=== PATIENT | female | born 1950 | race Caucasian/White ===

== ENCOUNTER 2020-05-15 21:34 | Emergency (ER) | payer OTHER ==
[~2020-05-15] VITALS: Ht 160 cm; Wt 54.4 kg
[2020-05-15] MEDS ORDERED: LOSARTAN-HCTZ1 EAC3 PO (21:50)
[2020-05-15] MEDS ORDERED: HUMALOG100 UNIT/1 SUBQ (21:50)
[2020-05-15] MEDS ORDERED: PRAVACHOL 20 MG20 M1 PO (21:50)
[2020-05-15] MEDS ORDERED: ASA81BEC PO (21:51)
[2020-05-15 22:28] LABS: HEMATOCRIT 37.6 % (37.0-47.0); HEMOGLOBIN 12.8 gm/dL (12.0-15.0); MCH 31.8 pg (26.0-34.0); MCV 93.6 fL (80.0-100.0); MPV 7.3 fl. (7.2-11.1); RBC 4.02 mil/uL (4.20-5.00); RDW-CV 12.1 % (10.5-14.5); WBC 6.8 thou/uL (4.0-11.0)
[2020-05-15 22:32] LABS: CALCIUM 9.1 mg/dL (8.5-10.1); CREATININE 0.9 mg/dL (0.6-1.3); POTASSIUM 3.4 mmol/L (3.5-5.1)
[2020-05-15 22:37] LABS: TOTAL BILIRUBIN 0.5 mg/dL (<0.1-1.0); TOTAL PROTEIN 7.1 g/dL (6.4-8.2)
[2020-05-16 00:30] VITALS: BP 99/54
--- NOTE | 2020-05-16 12:39 | EKG ---
[place] [address] ELECTROCARDIOGRAM REPORT Name: JULIA WATTS Room: [facility]#: [id number] Admission: 05/15/20 Attend Phys: Discharge: 05/16/20 Date of : 46 Date of Service: 05/15/202155 Report #: [id number] THIS REPORT FOR: //name// [facility] ED Test Date: 2020-05-15 Test Time: 21:56:07 Pat Name: JULIA WATTS Department: Room: Gender: F Software Developer Manager: FABIÁN : 1950 Requested By: Evelyne Thomas Order Number: [id number] MD: Kishore Garcia Measurements Intervals [place] Rate: 64 P: 67 [place]: 168 QRS: 38 QRSD: 93 T: 37 QT: 435 QTc: 449 Interpretive Statements Sinus rhythm Probable left atrial enlargement No previous ECG available for comparison Electronically Signed On 05-16-2020 12:39:42 GRAVEL SCREENER by Kishore Garcia [email or web address] <ELECTRONICALLY SIGNED> By: Kishore Garcia MD, [facility] 05/16/20 1239 [id number] Kishore Garcia MD, FAC /EPI
== END 2020-05-16 00:30 | disposition home or self-care (01) ==
LOC: M.ERS 21:34
PROVIDERS: Personal Emergency Response Attendant
DX: S01.01XA Laceration without foreign body of scalp, initial encounter (principal); E11.649 Type 2 diabetes mellitus with hypoglycemia without coma; R55 Syncope and collapse; I10 Essential (primary) hypertension; E78.00 Pure hypercholesterolemia, unspecified; Z79.4 Long term (current) use of insulin; Z79.899 Other long term (current) drug therapy; Z79.82 Long term (current) use of aspirin; Z88.0 Allergy status to penicillin; W18.09XA Striking against other object with subsequent fall, initial encounter; Y93.89 Activity, other specified; Y92.89 Other specified places as the place of occurrence of the external cause; Y99.8 Other external cause status

== ENCOUNTER 2020-05-16 15:15 | Emergency (ER) | payer OTHER ==
[~2020-05-16] VITALS: Ht 160 cm; Wt 54.4 kg
[~2020-05-16 15:15] MED LIST: ASA81BEC PO; HUMALOG100 UNIT/1 SUBQ; LOSARTAN-HCTZ1 EAC3 PO; PRAVACHOL 20 MG20 M1 PO
[2020-05-16 15:42] LABS: ABSOLUTE EOSINOPHILS 0.1 thou/uL (0.0-0.7); ABSOLUTE LYMPHOCYTES 1.6 thou/uL (0.8-5.3); ABSOLUTE MONOCYTES 0.6 thou/uL (0.0-1.2); ABSOLUTE NEUTROPHILS 4.7 thou/uL (1.6-8.1); BASOPHILS 0.6 %; EOSINOPHILS 1.7 %; HEMATOCRIT 38.4 % (37.0-47.0); HEMOGLOBIN 13.3 gm/dL (12.0-15.0); LYMPHOCYTES 22.9 %; MCH 32.3 pg (26.0-34.0); MCHC 34.7 g/dL (28.0-37.0); MONOCYTES 7.9 %; MPV 6.9 fl. (7.2-11.1); NUCLEATED RBCS 0 /100WBC; PLATELET COUNT* 186 thou/uL (150-400); POLYS 66.9 %; RBC 4.13 mil/uL (4.20-5.00); RDW-CV 12.4 % (10.5-14.5)
[2020-05-16 15:58] LABS: CALCIUM 8.6 mg/dL (8.5-10.1); CREATININE 1.1 mg/dL (0.6-1.3); POTASSIUM 3.6 mmol/L (3.5-5.1)
[2020-05-16 15:59] LABS: APTT 27.6 Seconds (25.0-31.3); INR 0.9
[2020-05-16 16:10] LABS: ALBUMIN 3.8 g/dL (3.4-5.0); CK-MB MASS 3.1 ng/mL (<0.5-3.6); MAGNESIUM 1.9 mg/dL (1.8-2.4); TOTAL BILIRUBIN 0.5 mg/dL (<0.1-1.0); TOTAL PROTEIN 6.9 g/dL (6.4-8.2)
[2020-05-16 17:01] VITALS: BP 119/48
--- NOTE | 2020-05-19 10:35 | EKG ---
[place] [address] ELECTROCARDIOGRAM REPORT Name: JULIA WATTS Room: [facility]#: [id number] Admission: 05/16/20 Attend Phys: Discharge: 05/16/20 Date of : 46 Date of Service: 05/16/20 1555 Report #: [id number] THIS REPORT FOR: //name// [facility] ED Test Date: 2020-05-16 Test Time: 15:55:17 Pat Name: JULIA WATTS Department: Room: Gender: F Third Grade Teacher: PRISCILLA : 1950 Requested By: Doyle Iyer Order Number: [id number] MD: Yossi Pleitez Measurements Intervals [place] Rate: 61 P: 69 GA: 149 QRS: 63 QRSD: 87 T: 62 QT: 431 QTc: 434 Interpretive Statements Sinus rhythm Baseline wander in lead(s) V4 Compared to ECG 05/15/2020 21:56:07 No significant changes Electronically Signed On 05-19-2020 10:35:32 CDT by Yossi Pleitez [email or web address] <ELECTRONICALLY SIGNED> By: Yossi Pleitez MD, FACC 05/19/20 1035 1555 1555 Yossi Pleitez MD, [facility] /EPI
== END 2020-05-16 17:02 | disposition home or self-care (01) ==
LOC: M.ERS 15:15
PROVIDERS: Family Medicine
DX: R04.2 Hemoptysis (principal); E11.9 Type 2 diabetes mellitus without complications; I10 Essential (primary) hypertension; E78.00 Pure hypercholesterolemia, unspecified; Z88.0 Allergy status to penicillin; Z79.4 Long term (current) use of insulin

== ENCOUNTER → 2020-10-13 | Outpatient (CLI) | payer OTHER | LOC: M.RAD 14:05 | PROVIDERS: ATTEND Family Medicine | DX: Z12.31 Encounter for screening mammogram for malignant neoplasm of breast (principal) ==